=== PATIENT | female | born 1945 | race Caucasian/White ===

== ENCOUNTER 2018-02-25 10:46 | Emergency (ER) | payer OTHER, MEDICAID ==
[~2018-02-25] VITALS: Ht 154.9 cm; Wt 82.6 kg
[2018-02-25 10:49] VITALS: Ht 154.9 cm; Wt 82.6 kg
[2018-02-25 12:49] VITALS: BP 124/94
== END 2018-02-25 12:49 | disposition home or self-care (01) ==
LOC: ED 10:46
DX: S62.306A Unspecified fracture of fifth metacarpal bone, right hand, initial encounter for closed fracture (principal); M19.90 Unspecified osteoarthritis, unspecified site; M79.7 Fibromyalgia; W23.0XXA Caught, crushed, jammed, or pinched between moving objects, initial encounter; Y93.89 Activity, other specified; Y92.89 Other specified places as the place of occurrence of the external cause; Y99.8 Other external cause status

== ENCOUNTER 2018-10-01 19:21 | Emergency (ER) | payer OTHER ==
[~2018-10-01] VITALS: Ht 152.4 cm; Wt 81.6 kg
[2018-10-01 19:29] VITALS: Ht 152.4 cm; Wt 81.6 kg
[2018-10-01 22:14] VITALS: BP 115/70
== END 2018-10-01 22:14 | disposition home or self-care (01) ==
LOC: ED 19:21
DX: S01.111A Laceration without foreign body of right eyelid and periocular area, initial encounter (principal); M79.641 Pain in right hand; M25.562 Pain in left knee; M54.2 Cervicalgia; M79.7 Fibromyalgia; M19.90 Unspecified osteoarthritis, unspecified site; Z95.0 Presence of cardiac pacemaker; W01.0XXA Fall on same level from slipping, tripping and stumbling without subsequent striking against object, initial encounter; Y93.89 Activity, other specified; Y92.89 Other specified places as the place of occurrence of the external cause; Y99.8 Other external cause status
CPT/HCPCS: 90715